=== PATIENT | male | born 1950 | race Caucasian/White ===

== ENCOUNTER 2023-08-19 15:43 | Inpatient (IN) | payer OTHER ==
--- OUTSIDE RECORDS SUMMARY | 2023-08-19 15:48 | XMS REPORT | Continuity of Care Document ---
Author Name Unknown Address [address] [facility] [address] [place] [address] [facility] Address [address] [place] [address] Care Team Providers Care Natural Sciences Manager Name Role Phone Stacy Silva Attending Clinician Unavailable Payers Payer Name Policy Type Policy Number Effective Date Expirati on Date Source AETNA MEDICARE 53 [id number] 2019 00:00:00 [facility] AETNA MEDICARE C1 [id number] [facility] Problems Condition Name Condition Details Condition Category Status Onset Date Resolution Date Last Treatment Date Treating Clinician Comments Source [id number] Erectile disorder due to medical condition in male Problem Active [facility] Low back pain Low back pain, unspecifie d Problem Active [facility] [id number] Stage 3b chronic kidney disease Problem Active [facility] [id number] Chronic, continuous use of opioids Problem [facility] [id number] Primary hypertensi on Problem [facility] [id number] Low back pain Problem Active [facility] [id number] PVD (periphera l vascular disease) Problem Active [facility] [id number] Other chronic pain Problem Active [facility] [id number] Primary insomnia Problem Active [facility] [id number] Screening for prostate cancer Problem Active [facility] [id number] Pure hyperchole sterolemia Problem Active [facility] [id number] Other secondary scoliosis, lumbar region Problem Active [facility] [id number] Cigarette nicotine dependence without complicati on Problem Active [facility] Allergies, Adverse Reactions, Alerts Allergy Name Allergy Type Status Severity Reaction(s) Onset Date Inactive Date Treating Clinician Comments Source Codeine Codeine Active stomach upset [facility] Social History Social Habit Start Date Stop Date Quantity Comments Source History of Tobacco Use Current Smoker [facility] Sex Assigned At [facility] Smoking Status Start Date Stop Date Source Current Smoker 2023-06-06 00:00:00 [facility] Medications Ordered Medication Name Filled Medication Name Start Date Stop Date Current Medication? Ordering Clinician Indication Dosage Frequency Signature (SIG) Comments Components Source Sildenafil Citrate 100 MG Sildenafil Citrate 100 MG 6-21 00:00: 00 12-16 00:00 :00 No 1{table t_as_ne eded} QD Sildenafil Citrate 100 MG Viagra 50 MG Viagra 50 MG 3-21 00:00: 00 10-15 00:00 :00 No 1{table t_as_ne eded} QD Viagra 50 MG Viagra 100 MG Viagra 100 MG 3-21 00:00: 00 09-06 00:00 :00 No 1{table t_as_ne eded} QD Viagra 100 MG Tadalafil (PAH) 20 MG Tadalafil (PAH) 20 MG 2-15 00:00: 00 08-12 00:00 :00 No 1{table t} Tadalafil (PAH) 20 MG Tramadol HCl Tramadol HCl 08 00:00: 00 02-07 00:00 :00 No Stacy Vineland 1 tablet as needed [facility] Aspirin 81 Aspirin 81 Yes Stacy Vineland 1 tablet [facility] Clopidogrel Bisulfate Clopidogrel Bisulfate Yes Stacy Vineland 1 tablet [facility] Atorvastati n Calcium Atorvastati n Calcium Yes Stacy Vineland 1 tablet [facility] Melatonin 5 MG Melatonin 5 MG No QD Losartan Potassium 25 MG Losartan Potassium 25 MG No 1{table t} QD Clopidogrel Bisulfate 75 MG Clopidogrel Bisulfate 75 MG No 1{table t} QD Aspirin 81 81 MG Aspirin 81 81 MG No 1{table t} QD Gabapentin 100 MG Gabapentin 100 MG No 1{capsu le} QD Atorvastati n Calcium 10 MG Atorvastati n Calcium 10 MG No 1{table t} QD Clopidogrel Bisulfate 75 MG Clopidogrel Bisulfate 75 MG No Clopidogre l Bisulfate 75 MG Hemp Oil-Vanilly l Butyl Ether 3-1 % Hemp Oil-Vanilly l Butyl Ether 3-1 % No Hemp Oil-Vanill yl Butyl Ether 3-1 % Atorvastati n Calcium 10 MG Atorvastati n Calcium 10 MG No 1{table t} QD Atorvastat in Calcium 10 MG [place] Garlic Ear Drops - [place] Garlic Ear Drops - No [place] Garlic Ear Drops - Melatonin 5 MG Melatonin 5 MG No QD Melatonin 5 MG Losartan Potassium 25 MG Losartan Potassium 25 MG No 1{table t} QD Losartan Potassium 25 MG Aspirin 81 81 MG Aspirin 81 81 MG No 1{table t} QD Aspirin 81 81 MG Tadalafil 10 MG Tadalafil 10 MG No 1{table t_as_ne eded} QD Tadalafil 10 MG Melatonin 5 MG Melatonin 5 MG No QD Melatonin 5 MG Clopidogrel Bisulfate 75 MG Clopidogrel Bisulfate 75 MG No Clopidogre l Bisulfate 75 MG Hemp Oil-Vanilly l Butyl Ether 3-1 % Hemp Oil-Vanilly l Butyl Ether 3-1 % No Hemp Oil-Vanill yl Butyl Ether 3-1 % Atorvastati n Calcium 10 MG Atorvastati n Calcium 10 MG No 1{table t} QD Atorvastat in Calcium 10 MG [place] Garlic Ear Drops - [place] Garlic Ear Drops - No [place] Garlic Ear Drops - Melatonin 5 MG Melatonin 5 MG No QD Melatonin 5 MG Losartan Potassium 25 MG Losartan Potassium 25 MG No 1{table t} QD Losartan Potassium 25 MG Aspirin 81 81 MG Aspirin 81 81 MG No 1{table t} QD Aspirin 81 81 MG Full Spectrum Soft Gels 15 MG Full Spectrum Soft Gels 15 MG No QD Full Spectrum Soft Gels 15 MG Full Spectrum Soft Gels 15 MG Full Spectrum Soft Gels 15 MG No QD Full Spectrum Soft Gels 15 MG HYDROcodone -Acetaminop hen 5-325 MG HYDROcodone -Acetaminop hen 5-325 MG No HYDROcodon e-Acetamin ophen 5-325 MG Melatonin 5 MG Melatonin 5 MG No QD Melatonin 5 MG Clopidogrel Bisulfate 75 MG Clopidogrel Bisulfate 75 MG No Clopidogre l Bisulfate 75 MG Atorvastati n Calcium 10 MG Atorvastati n Calcium 10 MG No 1{table t} QD Atorvastat in Calcium 10 MG Aspirin 81 81 MG Aspirin 81 81 MG No 1{table t} QD Aspirin 81 81 MG Losartan Potassium 25 MG Losartan Potassium 25 MG No 1{table t} QD Losartan Potassium 25 MG Sildenafil Citrate 100 MG Sildenafil Citrate 100 MG No Sildenafil Citrate 100 MG Atorvastati n Calcium 10 MG Atorvastati n Calcium 10 MG No 1{table t} QD Atorvastat in Calcium 10 MG Clopidogrel Bisulfate 75 MG Clopidogrel Bisulfate 75 MG No Clopidogre l Bisulfate 75 MG Melatonin 5 MG Melatonin 5 MG No QD Melatonin 5 MG Full Spectrum Soft Gels 15 MG Full Spectrum Soft Gels 15 MG No QD Full Spectrum Soft Gels 15 MG Sildenafil Citrate 100 MG Sildenafil Citrate 100 MG No Sildenafil Citrate 100 MG Aspirin 81 81 MG Aspirin 81 81 MG No 1{table t} QD Aspirin 81 81 MG HYDROcodone -Acetaminop hen 5-325 MG HYDROcodone -Acetaminop hen 5-325 MG No HYDROcodon e-Acetamin ophen 5-325 MG Losartan Potassium 25 MG Losartan Potassium 25 MG No 1{table t} BID Losartan Potassium 25 MG Atorvastati n Calcium 10 MG Atorvastati n Calcium 10 MG No 1{table t} QD Atorvastat in Calcium 10 MG Clopidogrel Bisulfate 75 MG Clopidogrel Bisulfate 75 MG No Clopidogre l Bisulfate 75 MG Melatonin 5 MG Melatonin 5 MG No QD Melatonin 5 MG Full Spectrum Soft Gels 15 MG Full Spectrum Soft Gels 15 MG No QD Full Spectrum Soft Gels 15 MG Sildenafil Citrate 100 MG Sildenafil Citrate 100 MG No Sildenafil Citrate 100 MG Aspirin 81 81 MG Aspirin 81 81 MG No 1{table t} QD Aspirin 81 81 MG HYDROcodone -Acetaminop hen 5-325 MG HYDROcodone -Acetaminop hen 5-325 MG No HYDROcodon e-Acetamin ophen 5-325 MG Losartan Potassium 25 MG Losartan Potassium 25 MG No 1{table t} BID Losartan Potassium 25 MG Atorvastati n Calcium 10 MG Atorvastati n Calcium 10 MG No 1{table t} QD Atorvastat in Calcium 10 MG Clopidogrel Bisulfate 75 MG Clopidogrel Bisulfate 75 MG No Clopidogre l Bisulfate 75 MG Melatonin 5 MG Melatonin 5 MG No QD Melatonin 5 MG Full Spectrum Soft Gels 15 MG Full Spectrum Soft Gels 15 MG No QD Full Spectrum Soft Gels 15 MG Sildenafil Citrate 100 MG Sildenafil Citrate 100 MG No Sildenafil Citrate 100 MG Aspirin 81 81 MG Aspirin 81 81 MG No 1{table t} QD Aspirin 81 81 MG HYDROcodone -Acetaminop hen 5-325 MG HYDROcodone -Acetaminop hen 5-325 MG No HYDROcodon e-Acetamin ophen 5-325 MG Losartan Potassium 25 MG Losartan Potassium 25 MG No 1{table t} BID Losartan Potassium 25 MG Atorvastati n Calcium 10 MG Atorvastati n Calcium 10 MG No 1{table t} QD Atorvastat in Calcium 10 MG Clopidogrel Bisulfate 75 MG Clopidogrel Bisulfate 75 MG No Clopidogre l Bisulfate 75 MG Melatonin 5 MG Melatonin 5 MG No QD Melatonin 5 MG Full Spectrum Soft Gels 15 MG Full Spectrum Soft Gels 15 MG No QD Full Spectrum Soft Gels 15 MG Sildenafil Citrate 100 MG Sildenafil Citrate 100 MG No Sildenafil Citrate 100 MG Aspirin 81 81 MG Aspirin 81 81 MG No 1{table t} QD Aspirin 81 81 MG HYDROcodone -Acetaminop hen 5-325 MG HYDROcodone -Acetaminop hen 5-325 MG No HYDROcodon e-Acetamin ophen 5-325 MG Losartan Potassium 25 MG Losartan Potassium 25 MG No 1{table t} BID Losartan Potassium 25 MG Atorvastati n Calcium 10 MG Atorvastati n Calcium 10 MG No 1{table t} QD Atorvastat in Calcium 10 MG Clopidogrel Bisulfate 75 MG Clopidogrel Bisulfate 75 MG No Clopidogre l Bisulfate 75 MG Melatonin 5 MG Melatonin 5 MG No QD Melatonin 5 MG Full Spectrum Soft Gels 15 MG Full Spectrum Soft Gels 15 MG No QD Full Spectrum Soft Gels 15 MG Sildenafil Citrate 100 MG Sildenafil Citrate 100 MG No Sildenafil Citrate 100 MG Aspirin 81 81 MG Aspirin 81 81 MG No 1{table t} QD Aspirin 81 81 MG HYDROcodone -Acetaminop hen 5-325 MG HYDROcodone -Acetaminop hen 5-325 MG No HYDROcodon e-Acetamin ophen 5-325 MG Losartan Potassium 25 MG Losartan Potassium 25 MG No 1{table t} BID Losartan Potassium 25 MG Atorvastati n Calcium 10 MG Atorvastati n Calcium 10 MG No 1{table t} QD Atorvastat in Calcium 10 MG Sildenafil Citrate 100 MG Sildenafil Citrate 100 MG No Sildenafil Citrate 100 MG Clopidogrel Bisulfate 75 MG Clopidogrel Bisulfate 75 MG No Clopidogre l Bisulfate 75 MG Full Spectrum Soft Gels 15 MG Full Spectrum Soft Gels 15 MG No QD Full Spectrum Soft Gels 15 MG HYDROcodone -Acetaminop hen 5-325 MG HYDROcodone -Acetaminop hen 5-325 MG No HYDROcodon e-Acetamin ophen 5-325 MG Aspirin 81 81 MG Aspirin 81 81 MG No 1{table t} QD Aspirin 81 81 MG Melatonin 5 MG Melatonin 5 MG No QD Melatonin 5 MG Losartan Potassium 25 MG Losartan Potassium 25 MG No 1{table t} BID Losartan Potassium 25 MG Atorvastati n Calcium 10 MG Atorvastati n Calcium 10 MG No 1{table t} QD Atorvastat in Calcium 10 MG Clopidogrel Bisulfate 75 MG Clopidogrel Bisulfate 75 MG No Clopidogre l Bisulfate 75 MG Melatonin 5 MG Melatonin 5 MG No QD Melatonin 5 MG HYDROcodone -Acetaminop hen 5-325 MG HYDROcodone -Acetaminop hen 5-325 MG No HYDROcodon e-Acetamin ophen 5-325 MG Losartan Potassium 25 MG Losartan Potassium 25 MG No 1{table t} BID Losartan Potassium 25 MG Aspirin 81 81 MG Aspirin 81 81 MG No 1{table t} QD Aspirin 81 81 MG Full Spectrum Soft Gels 15 MG Full Spectrum Soft Gels 15 MG No QD Full Spectrum Soft Gels 15 MG Sildenafil Citrate 100 MG Sildenafil Citrate 100 MG No Sildenafil Citrate 100 MG Tylenol Arthritis Pain Tylenol Arthritis Pain No Tylenol Arthritis Pain Immunizations Ordered Immunization Name Filled Immunization Name Date Status Comments Source Pneumovax (PPSV23) Pneumovax (PPSV23) 2021-04-26 14:02:00 Completed [facility] Pneumovax (PPSV23) Pneumovax (PPSV23) 2021-04-26 14:02:00 Completed [facility] Pneumovax (PPSV23) Pneumovax (PPSV23) 2021-04-26 14:02:00 Completed [facility] Pneumovax (PPSV23) Pneumovax (PPSV23) 2021-04-26 14:02:00 Completed [facility] Pneumovax (PPSV23) Pneumovax (PPSV23) 2021-04-26 14:02:00 Completed [facility] Pneumovax (PPSV23) Pneumovax (PPSV23) 2021-04-26 14:02:00 Completed [facility] Pneumovax (PPSV23) Pneumovax (PPSV23) 2021-04-26 14:02:00 Completed [facility] Pneumovax (PPSV23) Pneumovax (PPSV23) 2021-04-26 14:02:00 Completed [facility] Pneumovax (PPSV23) Pneumovax (PPSV23) 2021-04-26 14:02:00 Completed [facility] Pneumovax (PPSV23) Pneumovax (PPSV23) 2021-04-26 14:02:00 Completed [facility] Pneumovax (PPSV23) Pneumovax (PPSV23) 2021-04-26 14:02:00 Completed [facility] Pneumovax (PPSV23) Pneumovax (PPSV23) 2021-04-26 14:02:00 Completed [facility] Pneumovax (PPSV23) Pneumovax (PPSV23) 2021-04-26 14:02:00 Completed [facility] Moderna COVID-19 Vaccine Moderna COVID-19 Vaccine 2020-05-16 11:41:00 Completed [facility] Moderna COVID-19 Vaccine Moderna COVID-19 Vaccine 2020-05-16 11:41:00 Completed [facility] Moderna COVID-19 Vaccine Moderna COVID-19 Vaccine 2020-05-16 11:41:00 Completed [facility] Moderna COVID-19 Vaccine Moderna COVID-19 Vaccine 2020-05-16 11:41:00 Completed [facility] Moderna COVID-19 Vaccine Moderna COVID-19 Vaccine 2020-05-16 11:41:00 Completed [facility] Moderna COVID-19 Vaccine Moderna COVID-19 Vaccine 2020-05-16 11:41:00 Completed [facility] Moderna COVID-19 Vaccine Moderna COVID-19 Vaccine 2020-05-16 11:41:00 Completed [facility] Moderna COVID-19 Vaccine Moderna COVID-19 Vaccine 2020-05-16 11:41:00 Completed [facility] Moderna COVID-19 Vaccine Moderna COVID-19 Vaccine 2020-05-16 11:41:00 Completed [facility] Moderna COVID-19 Vaccine Moderna COVID-19 Vaccine 2020-05-16 11:41:00 Completed [facility] Moderna COVID-19 Vaccine Moderna COVID-19 Vaccine 2020-05-16 11:41:00 Completed [facility] Moderna COVID-19 Vaccine Moderna COVID-19 Vaccine 2020-05-16 11:41:00 Completed [facility] Moderna COVID-19 Vaccine Moderna COVID-19 Vaccine 2020-05-16 11:41:00 Completed [facility] Moderna COVID-19 Vaccine Moderna COVID-19 Vaccine 2020-05-16 11:41:00 Completed [facility] FLUZONE HIGH DOSE OVER 65 FLUZONE HIGH DOSE OVER 65 2020-02-10 10:43:00 Completed [facility] FLUZONE HIGH DOSE OVER 65 FLUZONE HIGH DOSE OVER 65 2020-02-10 10:43:00 Completed [facility] FLUZONE HIGH DOSE OVER 65 FLUZONE HIGH DOSE OVER 65 2020-02-10 10:43:00 Completed [facility] FLUZONE HIGH DOSE OVER 65 FLUZONE HIGH DOSE OVER 65 2020-02-10 10:43:00 Completed [facility] FLUZONE HIGH DOSE OVER 65 FLUZONE HIGH DOSE OVER 65 2020-02-10 10:43:00 Completed [facility] FLUZONE HIGH DOSE OVER 65 FLUZONE HIGH DOSE OVER 65 2020-02-10 10:43:00 Completed [facility] FLUZONE HIGH DOSE OVER 65 FLUZONE HIGH DOSE OVER 65 2020-02-10 10:43:00 Completed [facility] FLUZONE HIGH DOSE OVER 65 FLUZONE HIGH DOSE OVER 65 2020-02-10 10:43:00 Completed [facility] FLUZONE HIGH DOSE OVER 65 FLUZONE HIGH DOSE OVER 65 2020-02-10 10:43:00 Completed [facility] FLUZONE HIGH DOSE OVER 65 FLUZONE HIGH DOSE OVER 65 2020-02-10 10:43:00 Completed [facility] FLUZONE HIGH DOSE OVER 65 FLUZONE HIGH DOSE OVER 65 2020-02-10 10:43:00 Completed [facility] FLUZONE HIGH DOSE OVER 65 FLUZONE HIGH DOSE OVER 65 2020-02-10 10:43:00 Completed [facility] FLUZONE HIGH DOSE OVER 65 FLUZONE HIGH DOSE OVER 65 2020-02-10 10:43:00 Completed [facility] FLUZONE HIGH DOSE OVER 65 FLUZONE HIGH DOSE OVER 65 2020-02-10 10:43:00 Completed [facility] FLUZONE HIGH DOSE OVER 65 FLUZONE HIGH DOSE OVER 65 2019-04-02 08:07:00 Completed [facility] FLUZONE HIGH DOSE OVER 65 FLUZONE HIGH DOSE OVER 65 2019-04-02 08:07:00 Completed [facility] FLUZONE HIGH DOSE OVER 65 FLUZONE HIGH DOSE OVER 65 2019-04-02 08:07:00 Completed [facility] FLUZONE HIGH DOSE OVER 65 FLUZONE HIGH DOSE OVER 65 2019-04-02 08:07:00 Completed [facility] FLUZONE HIGH DOSE OVER 65 FLUZONE HIGH DOSE OVER 65 2019-04-02 08:07:00 Completed [facility] FLUZONE HIGH DOSE OVER 65 FLUZONE HIGH DOSE OVER 65 2019-04-02 08:07:00 Completed [facility] FLUZONE HIGH DOSE OVER 65 FLUZONE HIGH DOSE OVER 65 2019-04-02 08:07:00 Completed [facility] FLUZONE HIGH DOSE OVER 65 FLUZONE HIGH DOSE OVER 65 2019-04-02 08:07:00 Completed [facility] FLUZONE HIGH DOSE OVER 65 FLUZONE HIGH DOSE OVER 65 2019-04-02 08:07:00 Completed [facility] FLUZONE HIGH DOSE OVER 65 FLUZONE HIGH DOSE OVER 65 2019-04-02 08:07:00 Completed [facility] FLUZONE HIGH DOSE OVER 65 FLUZONE HIGH DOSE OVER 65 2019-04-02 08:07:00 Completed [facility] FLUZONE HIGH DOSE OVER 65 FLUZONE HIGH DOSE OVER 65 2019-04-02 08:07:00 Completed [facility] FLUZONE HIGH DOSE OVER 65 FLUZONE HIGH DOSE OVER 65 2019-04-02 08:07:00 Completed [facility] FLUZONE HIGH DOSE OVER 65 FLUZONE HIGH DOSE OVER 65 2019-04-02 08:07:00 Completed [facility] FLUZONE HIGH DOSE OVER 65 FLUZONE HIGH DOSE OVER 65 2019-04-02 00:00:00 Completed [facility] Prevnar 13 -Pneumonia Vaccine Prevnar 13 -Pneumonia Vaccine 2018-07-24 13:30:00 Completed [facility] Prevnar 13 -Pneumonia Vaccine Prevnar 13 -Pneumonia Vaccine 2018-07-24 13:30:00 Completed [facility] Prevnar 13 -Pneumonia Vaccine Prevnar 13 -Pneumonia Vaccine 2018-07-24 13:30:00 Completed [facility] Prevnar 13 -Pneumonia Vaccine Prevnar 13 -Pneumonia Vaccine 2018-07-24 13:30:00 Completed [facility] Prevnar 13 -Pneumonia Vaccine Prevnar 13 -Pneumonia Vaccine 2018-07-24 13:30:00 Completed [facility] Prevnar 13 -Pneumonia Vaccine Prevnar 13 -Pneumonia Vaccine 2018-07-24 13:30:00 Completed [facility] Prevnar 13 -Pneumonia Vaccine Prevnar 13 -Pneumonia Vaccine 2018-07-24 13:30:00 Completed [facility] Prevnar 13 -Pneumonia Vaccine Prevnar 13 -Pneumonia Vaccine 2018-07-24 13:30:00 Completed [facility] Prevnar 13 -Pneumonia Vaccine Prevnar 13 -Pneumonia Vaccine 2018-07-24 13:30:00 Completed [facility] Prevnar 13 -Pneumonia Vaccine Prevnar 13 -Pneumonia Vaccine 2018-07-24 13:30:00 Completed [facility] Prevnar 13 -Pneumonia Vaccine Prevnar 13 -Pneumonia Vaccine 2018-07-24 13:30:00 Completed [facility] Prevnar 13 -Pneumonia Vaccine Prevnar 13 -Pneumonia Vaccine 2018-07-24 13:30:00 Completed [facility] Prevnar 13 -Pneumonia Vaccine Prevnar 13 -Pneumonia Vaccine 2018-07-24 13:30:00 Completed [facility] Prevnar 13 -Pneumonia Vaccine Prevnar 13 -Pneumonia Vaccine 2018-07-24 13:30:00 Completed [facility] Prevnar 13 -Pneumonia Vaccine Prevnar 13 -Pneumonia Vaccine 2018-07-24 00:00:00 Completed [facility] Flucelvax - single dose syringe Flucelvax - single dose syringe 2018-01-31 09:29:00 Completed [facility] Flucelvax - single dose syringe Flucelvax - single dose syringe 2018-01-31 09:29:00 Completed [facility] Flucelvax - single dose syringe Flucelvax - single dose syringe 2018-01-31 09:29:00 Completed [facility] Flucelvax - single dose syringe Flucelvax - single dose syringe 2018-01-31 09:29:00 Completed [facility] Flucelvax - single dose syringe Flucelvax - single dose syringe 2018-01-31 09:29:00 Completed [facility] Flucelvax - single dose syringe Flucelvax - single dose syringe 2018-01-31 09:29:00 Completed [facility] Flucelvax - single dose syringe Flucelvax - single dose syringe 2018-01-31 09:29:00 Completed [facility] Flucelvax - single dose syringe Flucelvax - single dose syringe 2018-01-31 09:29:00 Completed [facility] Flucelvax - single dose syringe Flucelvax - single dose syringe 2018-01-31 09:29:00 Completed [facility] Flucelvax - single dose syringe Flucelvax - single dose syringe 2018-01-31 09:29:00 Completed [facility] Flucelvax - single dose syringe Flucelvax - single dose syringe 2018-01-31 09:29:00 Completed [facility] Flucelvax - single dose syringe Flucelvax - single dose syringe 2018-01-31 09:29:00 Completed [facility] Flucelvax - single dose syringe Flucelvax - single dose syringe 2018-01-31 09:29:00 Completed [facility] Flucelvax - single dose syringe Flucelvax - single dose syringe 2018-01-31 09:29:00 Completed [facility] Flucelvax Flucelvax 2018-01-31 00:00:00 Completed [facility] Moderna COVID-19 Vaccine Moderna COVID-19 Vaccine Unknown Completed [facility] Flucelvax - single dose syringe Flucelvax - single dose syringe Unknown Completed [facility] Pneumovax (PPSV23) Pneumovax (PPSV23) Unknown Completed [facility] Prevnar 13 -Pneumonia Vaccine Prevnar 13 -Pneumonia Vaccine Unknown Completed [facility] FLUZONE HIGH DOSE OVER 65 FLUZONE HIGH DOSE OVER 65 Unknown Completed [facility] FLUZONE HIGH DOSE OVER 65 FLUZONE HIGH DOSE OVER 65 Unknown Completed [facility] Moderna COVID-19 Vaccine Moderna COVID-19 Vaccine Unknown Completed [facility] Flucelvax - single dose syringe Flucelvax - single dose syringe Unknown Completed [facility] Pneumovax (PPSV23) Pneumovax (PPSV23) Unknown Completed [facility] Prevnar 13 -Pneumonia Vaccine Prevnar 13 -Pneumonia Vaccine Unknown Completed [facility] FLUZONE HIGH DOSE OVER 65 FLUZONE HIGH DOSE OVER 65 Unknown Completed [facility] FLUZONE HIGH DOSE OVER 65 FLUZONE HIGH DOSE OVER 65 Unknown Completed [facility] Moderna COVID-19 Vaccine Moderna COVID-19 Vaccine Unknown Completed [facility] Flucelvax - single dose syringe Flucelvax - single dose syringe Unknown Completed [facility] Pneumovax (PPSV23) Pneumovax (PPSV23) Unknown Completed [facility] Prevnar 13 -Pneumonia Vaccine Prevnar 13 -Pneumonia Vaccine Unknown Completed [facility] FLUZONE HIGH DOSE OVER 65 FLUZONE HIGH DOSE OVER 65 Unknown Completed [facility] FLUZONE HIGH DOSE OVER 65 FLUZONE HIGH DOSE OVER 65 Unknown Completed [facility] Moderna COVID-19 Vaccine Moderna COVID-19 Vaccine Unknown Completed [facility] Flucelvax - single dose syringe Flucelvax - single dose syringe Unknown Completed [facility] Pneumovax (PPSV23) Pneumovax (PPSV23) Unknown Completed [facility] Prevnar 13 -Pneumonia Vaccine Prevnar 13 -Pneumonia Vaccine Unknown Completed [facility] FLUZONE HIGH DOSE OVER 65 FLUZONE HIGH DOSE OVER 65 Unknown Completed [facility] FLUZONE HIGH DOSE OVER 65 FLUZONE HIGH DOSE OVER 65 Unknown Completed [facility] Moderna COVID-19 Vaccine Moderna COVID-19 Vaccine Unknown Completed [facility] Flucelvax - single dose syringe Flucelvax - single dose syringe Unknown Completed [facility] Pneumovax (PPSV23) Pneumovax (PPSV23) Unknown Completed [facility] Prevnar 13 -Pneumonia Vaccine Prevnar 13 -Pneumonia Vaccine Unknown Completed [facility] FLUZONE HIGH DOSE OVER 65 FLUZONE HIGH DOSE OVER 65 Unknown Completed [facility] FLUZONE HIGH DOSE OVER 65 FLUZONE HIGH DOSE OVER 65 Unknown Completed [facility] Moderna COVID-19 Vaccine Moderna COVID-19 Vaccine Unknown Completed [facility] Flucelvax - single dose syringe Flucelvax - single dose syringe Unknown Completed [facility] Pneumovax (PPSV23) Pneumovax (PPSV23) Unknown Completed [facility] Prevnar 13 -Pneumonia Vaccine Prevnar 13 -Pneumonia Vaccine Unknown Completed [facility] FLUZONE HIGH DOSE OVER 65 FLUZONE HIGH DOSE OVER 65 Unknown Completed [facility] FLUZONE HIGH DOSE OVER 65 FLUZONE HIGH DOSE OVER 65 Unknown Completed [facility] Moderna COVID-19 Vaccine Moderna COVID-19 Vaccine Unknown Completed [facility] Flucelvax (ccIIV4) - SDS - 0.5mL Flucelvax (ccIIV4) - SDS - 0.5mL Unknown Completed [facility] Pneumovax (PPSV23) Pneumovax (PPSV23) Unknown Completed [facility] Prevnar 13 -Pneumonia Vaccine Prevnar 13 -Pneumonia Vaccine Unknown Completed [facility] FLUZONE HIGH DOSE OVER 65 FLUZONE HIGH DOSE OVER 65 Unknown Completed [facility] FLUZONE HIGH DOSE OVER 65 FLUZONE HIGH DOSE OVER 65 Unknown Completed [facility] Prevnar 20 (PCV20) Prevnar 20 (PCV20) Unknown Completed [facility] Fluad (aIIV4) - SDS - 0.5mL Fluad (aIIV4) - SDS - 0.5mL Unknown Completed [facility] Moderna COVID-19 Vaccine Moderna COVID-19 Vaccine Unknown Completed [facility] Flucelvax (ccIIV4) - SDS - 0.5mL Flucelvax (ccIIV4) - SDS - 0.5mL Unknown Completed [facility] Pneumovax (PPSV23) Pneumovax (PPSV23) Unknown Completed [facility] Prevnar 13 -Pneumonia Vaccine Prevnar 13 -Pneumonia Vaccine Unknown Completed [facility] FLUZONE HIGH DOSE OVER 65 FLUZONE HIGH DOSE OVER 65 Unknown Completed [facility] FLUZONE HIGH DOSE OVER 65 FLUZONE HIGH DOSE OVER 65 Unknown Completed [facility] Vital Signs Vital Name Observation Time Observation Value Comments S pebbles height 2023-06-06 10:00:00 68.5 [in_i] Comm on [facility] weight 2023-06-06 10:00:00 141.4 [lb_av] Co [facility] temperature 2023-06-06 10:00:00 97.8 [degF] Com [facility] bmi 2023-06-06 10:00:00 21.18 kg/m2 Comm on [facility] oximetry 2023-06-06 10:00:00 98 % Commo n [facility] respiratory rate 2023-06-06 10:00:00 16 /min [facility] blood pressure systolic 2023-06-06 10:00:00 139 mm[Hg] [facility] blood pressure diastolic 2023-06-06 10:00:00 65 mm[Hg] [facility] height 2023-03-05 10:40:00 68.5 [in_i] Comm on [facility] weight 2023-03-05 10:40:00 144.0 [lb_av] Co [facility] temperature 2023-03-05 10:40:00 97.0 [degF] Com [facility] bmi 2023-03-05 10:40:00 21.57 kg/m2 Comm on [facility] oximetry 2023-03-05 10:40:00 99 % Commo n [facility] respiratory rate 2023-03-05 10:40:00 16 /min Common [facility] blood pressure systolic 2023-03-05 10:40:00 138 mm[Hg] Common [facility] blood pressure diastolic 2023-03-05 10:40:00 78 mm[Hg] [facility] height 2022-09-21 10:40:00 68.5 [in_i] Comm on [facility] weight 2022-09-21 10:40:00 147.2 [lb_av] Co mmon [facility] temperature 2022-09-21 10:40:00 97.2 [degF] Com [facility] bmi 2022-09-21 10:40:00 22.05 kg/m2 Comm on [facility] oximetry 2022-09-21 10:40:00 98 % Commo n [facility] respiratory rate 2022-09-21 10:40:00 16 /min Common [facility] blood pressure systolic 2022-09-21 10:40:00 119 mm[Hg] Common [facility] blood pressure diastolic 2022-09-21 10:40:00 66 mm[Hg] Common [facility] height 2022-09-21 10:40:00 68.5 [in_i] Comm on [facility] weight 2022-09-21 10:40:00 147.2 [lb_av] Co mmon [facility] temperature 2022-09-21 10:40:00 97.2 [degF] Com [facility] bmi 2022-09-21 10:40:00 22.05 kg/m2 Comm on [facility] oximetry 2022-09-21 10:40:00 98 % Commo n [facility] blood pressure systolic 2022-09-21 10:40:00 119 mm[Hg] Common [facility] blood pressure diastolic 2022-09-21 10:40:00 66 mm[Hg] [facility] height 2021-11-30 10:00:00 68.5 [in_i] Comm on [facility] weight 2021-11-30 10:00:00 148.4 [lb_av] Co mmon [facility] temperature 2021-11-30 10:00:00 98.4 [degF] Com mon [facility] bmi 2021-11-30 10:00:00 22.23 kg/m2 Comm on [facility] oximetry 2021-11-30 10:00:00 98 % Commo n [facility] respiratory rate 2021-11-30 10:00:00 16 /min [facility] blood pressure systolic 2021-11-30 10:00:00 136 mm[Hg] [facility] blood pressure diastolic 2021-11-30 10:00:00 80 mm[Hg] [facility] height 2021-11-30 10:00:00 68.5 [in_i] Comm on [facility] weight 2021-11-30 10:00:00 148.4 [lb_av] Co mmon [facility] temperature 2021-11-30 10:00:00 98.4 [degF] Com mon [facility] bmi 2021-11-30 10:00:00 22.23 kg/m2 Comm on [facility] oximetry 2021-11-30 10:00:00 98 % Commo n [facility] respiratory rate 2021-11-30 10:00:00 16 /min [facility] blood pressure systolic 2021-11-30 10:00:00 136 mm[Hg] [facility] blood pressure diastolic 2021-11-30 10:00:00 80 mm[Hg] Common [facility] height 2021-06-13 11:40:00 68.5 [in_i] Comm on [facility] weight 2021-06-13 11:40:00 156 [lb_av] Comm on [facility] temperature 2021-06-13 11:40:00 97.8 [degF] Com mon [facility] bmi 2021-06-13 11:40:00 23.37 kg/m2 Comm on [facility] oximetry 2021-06-13 11:40:00 98 % Commo n [facility] respiratory rate 2021-06-13 11:40:00 18 /min Common [facility] blood pressure systolic 2021-06-13 11:40:00 119 mm[Hg] Common [facility] blood pressure diastolic 2021-06-13 11:40:00 66 mm[Hg] Common [facility] height 2021-05-19 08:40:00 68.5 [in_i] Comm on [facility] weight 2021-05-19 08:40:00 158 [lb_av] Comm on [facility] temperature 2021-05-19 08:40:00 98.4 [degF] Com mon [facility] bmi 2021-05-19 08:40:00 23.67 kg/m2 Comm on [facility] oximetry 2021-05-19 08:40:00 99 % Commo n [facility] respiratory rate 2021-05-19 08:40:00 18 /min Common [facility] blood pressure systolic 2021-05-19 08:40:00 135 mm[Hg] [facility] blood pressure diastolic 2021-05-19 08:40:00 74 mm[Hg] Common [facility] height 2021-04-26 13:00:00 68.5 [in_i] Comm on [facility] weight 2021-04-26 13:00:00 158 [lb_av] Comm on [facility] temperature 2021-04-26 13:00:00 98.1 [degF] Com mon [facility] bmi 2021-04-26 13:00:00 23.67 kg/m2 Comm on [facility] oximetry 2021-04-26 13:00:00 98 % Commo n [facility] respiratory rate 2021-04-26 13:00:00 20 /min Common [facility] blood pressure systolic 2021-04-26 13:00:00 115 mm[Hg] Common [facility] blood pressure diastolic 2021-04-26 13:00:00 61 mm[Hg] [facility] height 2021-02-16 15:00:00 68.5 [in_i] Comm on [facility] weight 2021-02-16 15:00:00 156.6 [lb_av] Co mmon [facility] temperature 2021-02-16 15:00:00 98.9 [degF] Com mon [facility] bmi 2021-02-16 15:00:00 23.46 kg/m2 Comm on [facility] oximetry 2021-02-16 15:00:00 96 % Commo n [facility] respiratory rate 2021-02-16 15:00:00 18 /min [facility] blood pressure systolic 2021-02-16 15:00:00 139 mm[Hg] [facility] blood pressure diastolic 2021-02-16 15:00:00 63 mm[Hg] [facility] Encounters Start Date/Time End Date/Time Encounter Type Admission Type Attending Clinicians Care Facility Care Department Encounter ID Source 2022-05-31 09:01:00 Outpatient [place] Stacy [facility] [id number] [facility] 2022-03-19 16:16:00 Outpatient Stacy Silva [facility] [id number] [facility] 2021-11-28 11:07:00 Outpatient Stacy Silav [facility] [id number] [facility] 2021-05-29 15:18:01 Outpatient Stacy Silva [facility] [id number] [facility] 2021-05-24 12:20:15 Outpatient Stacy Silva [facility] [id number] [facility] 2021-05-24 12:03:03 Outpatient Stacy Silva [facility] [id number] [facility] 2021-05-24 11:54:00 Outpatient Stacy Silva [facility] [id number] [facility] 2021-05-24 11:17:39 Outpatient Stacy Silva [facility]EL[facility] [id number] [facility] 2021-05-24 11:11:33 Outpatient Stacy Silva [facility] [id number] [facility] 2023-06-06 00:00:00 2023-06-06 00:00:00 OFFICE VISIT ESTAB PT LEVEL 3 [facility] [id number] [facility] 2023-03-05 00:00:00 2023-03-05 00:00:00 OFFICE VISIT ESTAB PT LEVEL 3 [facility] [id number] [facility] 2022-09-21 00:00:00 2022-09-21 00:00:00 OFFICE VISIT ESTAB PT LEVEL 3 [facility] [id number] [facility] 2022-09-21 00:00:00 2022-09-21 00:00:00 SUB ANNUAL [facility] V[facility] [id number] [facility] 2022-09-05 00:00:00 2022-09-05 00:00:00 (TEL) STLMLC ST[facility] [id number] [facility] 2022-08-14 00:00:00 2022-08-14 00:00:00 (TEL) STLMLC ST[facility] [id number] [facility] 2022-08-08 00:00:00 2022-08-08 00:00:00 (TEL) STLMLC STL[facility]C [id number] [facility] 2021-12-15 00:00:00 2021-12-15 00:00:00 (TEL) STLMLC ST[facility] [id number] [facility] 2021-11-30 00:00:00 2021-11-30 00:00:00 OFFICE VISIT ESTAB PT LEVEL 4 [facility]C ST[facility]C [id number] [facility] 2021-11-23 00:00:00 2021-11-23 00:00:00 (TEL) STLMLC STL[facility]C [id number] [facility] 2021-10-16 00:00:00 2021-10-16 00:00:00 (TEL) STLMLC STL[facility]C [id number] [facility] 2021-08-02 00:00:00 2021-08-02 00:00:00 (TEL) STLMLC STL[facility]C [id number] [facility] 2021-07-18 00:00:00 2021-07-18 00:00:00 (TEL) STLMLC STL[facility]C [id number] [facility] 2021-07-18 00:00:00 2021-07-18 00:00:00 (TEL) STLMLC STL[facility]C [id number] [facility] 2021-07-17 00:00:00 2021-07-17 00:00:00 (TEL) STLMLC STLMLC [id number] [facility] 2021-06-16 00:00:00 2021-06-16 00:00:00 (TEL) STLMLC STL[facility]C [id number] [facility] 2021-06-16 00:00:00 2021-06-16 00:00:00 (TEL) STLMLC ST[facility]C [id number] [facility] 2021-06-13 00:00:00 2021-06-13 00:00:00 OFFICE VISIT EST PT LEVEL 3 [facility]LMLC STL[facility]C [id number] [facility] 2021-05-19 00:00:00 2021-05-19 00:00:00 OFFICE VISIT EST PT LEVEL 3 [facility] [id number] [facility] 2021-04-26 00:00:00 2021-04-26 00:00:00 SUB ANNUAL [facility]NESS VISIT STLMLC STL[facility]C [id number] [facility] 2021-02-16 00:00:00 2021-02-16 00:00:00 OFFICE VISIT EST PT LEVEL 3 [facility]C ST[facility] [id number] [facility] 2020-11-17 00:00:00 2020-11-17 00:00:00 Outpatient [facility] [id number] [facility] 2020-11-10 00:00:00 2020-11-10 00:00:00 Outpatient [facility] [id number] [facility] 2020-09-30 00:00:00 2020-09-30 00:00:00 Outpatient [facility] [id number] [facility] 2020-08-24 00:00:00 2020-08-24 00:00:00 Outpatient [facility] [id number] [facility] 2020-08-15 00:00:00 2020-08-15 00:00:00 Outpatient [facility] [id number] [facility] 2020-05-16 00:00:00 2020-05-16 00:00:00 Outpatient [facility] [id number] [facility] 2020-02-10 00:00:00 2020-02-10 00:00:00 Outpatient [facility] [id number] [facility] 2019-11-10 08:20:00 2019-11-10 08:20:[address] [facility] [id number] [facility] 2019-08-11 08:40:00 2019-08-11 08:40:[address] [facility] [id number] [facility] 2019-07-02 09:40:00 2019-07-02 09:40:[address] [facility] [id number] [facility] 2019-05-12 10:18:00 2019-05-12 10:18:[address] [facility] [id number] [facility] 2019-04-02 08:00:00 2019-04-02 08:00:[address] [facility] [id number] [facility] 2019-02-05 18:37:00 2019-02-05 18:37:[address] [facility] [id number] [facility] 2019-01-30 08:40:00 2019-01-30 08:40:[address] [facility] [id number] [facility] 2018-10-31 09:40:00 2018-10-31 09:40:[address] [facility] [id number] [facility] 2018-10-23 09:12:00 2018-10-23 09:12:[address] [facility] [id number] [facility] 2018-07-24 13:00:00 2018-07-24 13:00:[address] [facility] [id number] [facility] 2018-07-22 11:45:00 2018-07-22 11:45:[address] [facility] [id number] [facility] 2018-05-02 08:30:00 2018-05-02 08:30:00 Outpatient [facility] [id number] [facility] 2018-01-31 09:00:00 2018-01-31 09:00:00 Outpatient [facility] [id number] [facility] 2017-11-01 09:30:00 2017-11-01 09:30:00 Outpatient [facility] [id number] [facility] 2017-08-20 16:22:00 2017-08-20 16:22:00 Outpatient [facility] [id number] [facility] 2017-07-15 15:00:00 2017-07-15 15:00:00 Outpatient [facility] [id number] [facility] Results Test Description Test Time Test Comments Results Result Co mments Source LIPID [id number] 00:00:00* Test Item Value Reference Range Interpretation Comme nts CHOLESTEROL (test code = 2093-3) 97 MG/DL See_Comment [Automated messa ge] The system which generated this result transmitted reference range: <200 MG/DL. The reference range was not used to interpret this result as normal/abnormal. TRIGLYCERIDES (test code = 2571-8) 85 MG/DL See_Comment [Automated messa ge] The system which generated this result transmitted reference range: <150 MG/DL. The reference range was not used to interpret this result as normal/abnormal. HDL CHOLESTEROL (test code = 2085-9) 36 MG/DL See_Comment L [Automated messa ge] The system which generated this result transmitted reference range: >39 MG/DL. The reference range was not used to interpret this result as normal/abnormal. CALC LDL CHOL (test code = 23311-4) 44 MG/DL See_Comment [Automated messa ge] The system which generated this result transmitted reference range: <100 MG/DL. The reference range was not used to interpret this result as normal/abnormal. RISK RATIO LDL/HDL (test code = 39909-4) 1.22 RATIO See_Comment [Automated message] The system which generated this result transmitted reference range: <3.55 RATIO. The reference range was not used to interpret this result as normal/abnormal. PSA, FREE AND [id number] 00:00:00* Test Item Value Reference Range Interpretation Comme nts PROSTATIC SPECIFIC AG (test code = 2857-1) 1.86 NG/ML See_Comment [Automated message] The system which generated this result transmitted reference range: <=4.00 NG/ML. The reference range was not used to interpret this result as normal/abnormal. FREE PSA (test code = 85812-1) 0.62 NG/ML % FREE PSA (test code = 51412-4) 33 % SEE BELOW % COMPREHENSIVE METABOLIC [id number] 00:00:00* Test Item Value Reference Range Interpretation Comme nts GLUCOSE (test code = 1558-6) 99 MG/DL See_Comment [Automated [employer]] The system which generated this result transmitted reference range: 70-99 MG/DL. The reference range was not used to interpret this result as normal/abnormal. BUN (test code = 3094-0) 14 MG/DL See_Comment [Automated [employer]] The system which generated this result transmitted reference range: 8-23 MG/DL. The reference range was not used to interpret this result as normal/abnormal. CREATININE (test code = 2160-0) 1.70 MG/DL See_Comment H [Automated [employer]] The system which generated this result transmitted reference range: 0.80-1.40 MG/DL. The reference range was not used to interpret this result as normal/abnormal. eGFR (2020 CKD-EPI) (test code = 69663-0) 42 ML/MIN/1.73 See_Comment L [Automated messa ge] The system which generated this result transmitted reference range: >60 ML/MIN/1.73. The reference range was not used to interpret this result as normal/abnormal. CALC BUN/CREAT (test code = 3097-3) 8 RATIO See_Comment [Automated [employer] ge] The system which generated this result transmitted reference range: 6-28 RATIO. The reference range was not used to interpret this result as normal/abnormal. SODIUM (test code = 2951-2) 143 MEQ/L See_Comment [Automated messa ge] The system which generated this result transmitted reference range: 133-146 MEQ/L. The reference range was not used to interpret this result as normal/abnormal. POTASSIUM (test code = 2823-3) 4.5 MEQ/L See_Comment [Automated messa ge] The system which generated this result transmitted reference range: 3.5-5.4 MEQ/L. The reference range was not used to interpret this result as normal/abnormal. CHLORIDE (test code = 2075-0) 105 MEQ/L See_Comment [Automated messa ge] The system which generated this result transmitted reference range: 95-107 MEQ/L. The reference range was not used to interpret this result as normal/abnormal. CARBON DIOXIDE (test code = 1963-8) 25 MEQ/L See_Comment [Automated messa ge] The system which generated this result transmitted reference range: 19-31 MEQ/L. The reference range was not used to interpret this result as normal/abnormal. CALCIUM (test code = 08537-0) 9.6 MG/DL See_Comment [Automated messa ge] The system which generated this result transmitted reference range: 8.5-10.5 MG/DL. The reference range was not used to interpret this result as normal/abnormal. PROTEIN, TOTAL (test code = 2885-2) 7.2 G/DL See_Comment [Automated messa ge] The system which generated this result transmitted reference range: 6.1-8.3 G/DL. The reference range was not used to interpret this result as normal/abnormal. ALBUMIN (test code = 1751-7) 3.9 G/DL See_Comment [Automated messa ge] The system which generated this result transmitted reference range: 3.5-5.2 G/DL. The reference range was not used to interpret this result as normal/abnormal. CALC GLOBULIN (test code = 12397-3) 3.3 G/DL See_Comment [Automated messa ge] The system which generated this result transmitted reference range: 1.9-3.7 G/DL. The reference range was not used to interpret this result as normal/abnormal. CALC A/G RATIO (test code = 1759-0) 1.2 RATIO See_Comment [Automated messa ge] The system which generated this result transmitted reference range: 1.0-2.6 RATIO. The reference range was not used to interpret this result as normal/abnormal. BILIRUBIN, TOTAL (test code = 1975-2) 0.3 MG/DL See_Comment [Automated message] The system which generated this result transmitted reference range: <=1.2 MG/DL. The reference range was not used to interpret this result as normal/abnormal. ALKALINE PHOSPHATASE (test code = 6768-6) 82 U/L See_Comment [Automated message] The system which generated this result transmitted reference range: 40-125 U/L. The reference range was not used to interpret this result as normal/abnormal. AST (test code = 1920-8) 18 U/L See_Comment [Automated [employer]] The system which generated this result transmitted reference range: 9-50 U/L. The reference range was not used to interpret this result as normal/abnormal. ALT (test code = 1742-6) 8 U/L See_Comment [Automated [employer]] The system which generated this result transmitted reference range: 5-50 U/L. The reference range was not used to interpret this result as normal/abnormal.
[2023-08-19 16:36] LABS: Albumin 3.4 g/dL (3.4-5.0); Albumin/Globulin Ratio 0.9 (1.1-1.8); Anion Gap 10.7 mEq/L (5.0-15.0); Bilirubin Total 0.3 mg/dL (0.2-1.0); Globulin 3.6 g/dL (2.3-3.5); PT Prothrombin Time 11.5 SECONDS (9.5-12.5); PTT, Activated Partial Thromb 30.2 SECONDS (24.3-36.9); Potassium 3.7 mEq/L (3.5-5.1); Protime INR 1.05; Troponin High Sensitivity 5.9 pg/mL (<58.9)
[2023-08-19 16:39] LABS: Absolute Basophils 0.1 K/uL (0-0.5); Absolute Lymphocytes (CBC) 1.8 K/uL (0.7-4.9); Absolute Monocytes 0.8 K/uL (0.1-1.3); Absolute Neutrophil 6.5 K/uL (1.8-8.0); Basophils % 0.6 % (0-1.3); Eosinophils % 0.5 % (0-4.4); Hematocrit 32.9 % (39.6-49.0); Hemoglobin 11.2 g/dL (13.6-17.9); Lymphocytes % 19.2 % (15.3-44.8); MCH 30.2 pg (27.0-35.0); MCHC 33.9 g/dL (32.0-36.0); MCV 89.1 fL (80-100); MPV 9.9 fL (7.6-11.3); Monocytes % 8.9 % (3.3-12.3); Neutrophils % 70.8 % (41.7-73.7); Platelets 225 thou/uL (152-406); RBC Red Blood Cell Count 3.69 M/uL (4.33-5.43); Red Cell Distribution Width 14.6 % (12.1-15.2)
--- NOTE | 2023-08-19 17:37 | RAD REPORT ---
EXAM DESCRIPTION: CT - Abdomen Pelvis Wo Contrast - 08/19/2023 5:28 pm CLINICAL HISTORY: Abdominal pain. EPIGASTRIC PAIN COMPARISON: No comparisons TECHNIQUE: CT imaging of the abdomen and pelvis was performed without contrast. Solid organ, bowel a nd vascular assessment is limited due to lack of IV and oral contrast. All CT scans are performed using dose optimization technique as appropriate and may include automated exposure control or mA/KV adjustment according to patient size. FINDINGS: 13 mm nodule is present in the left lung base posteriorly. The lung bases are otherwise cl ear. There is significant fluid distention of the stomach and proximal duodenum.There is intrahepatic, ext rahepatic and pancreatic duct irregular dilatation. Multiple cysts left kidney. Right kidney nonvisua lized. No bowel obstruction, free air, free fluid or abscess. Moderate stool throughout the colon. Advanced degenerative levoscoliosis the lumbar spine. IMPRESSION: Significant biliary dilatation is seen including the pancreatic duct and intrahepatic bi liary tree. Recommend correlation with bilirubin levels. This could be caused by a mass in the pancre atic head region, however full assessment is not possible due to noncontrast nature of the study. MRI abdomen with contrast and MRCP would be suggested for non urgent further evaluation. 13 mm left lung base nodule, nonspecific. Neoplasia not excluded. Significant distention of the stomach and proximal duodenum. Upper endoscopy may be useful. A limited non-contrast examination was performed as detailed.
--- NOTE | 2023-08-19 17:54 | RAD REPORT ---
EXAM DESCRIPTION: RAD - Chest Single View - 08/19/2023 5:48 pm CLINICAL HISTORY: indigestion Chest pain. COMPARISON: No comparisons FINDINGS: Portable technique limits examination quality. The lungs are emphysematous but grossly clear. The heart is normal in size. No displaced fractures. IMPRESSION: COPD.
--- NOTE | 2023-08-19 18:01 | ER ---
Nurse's Notes [facility] Name: Thai Gardner Age: 73 yrs Sex: Male : 1950 Arrival Date: 08/19/2023 Time: 15:43 Bed 3 Private MD: Diagnosis: Hypotension, unspecified;Other specified diseases of biliary tract;Anemia, unspecified Presentation: 08/18 15:48 Chief complaint: Patient states: sent by PCP for low blood pressure and dehydration. ko1 Coronavirus screen: At this time, the client does not indicate any symptoms associated with coronavirus-19. Ebola Screen: No symptoms or risks identified at this time. Initial Sepsis Screen: Does the patient meet any 2 criteria? No. Patient's initial sepsis screen is negative. Does the patient have a suspected source of infection? No. Patient's initial sepsis screen is negative. Risk Assessment: Do you want to hurt yourself or someone else? Patient reports no desire to harm self or others. Onset of symptoms is unknown. 15:48 Method Of Arrival: Wheelchair ko1 15:48 Acuity: LAURE 2 ko1 Triage Assessment: 15:49 General: Appears ill, slender, Behavior is calm, cooperative, appropriate for age. ko1 Pain: Denies pain. 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 - Infectious Disease History:: Denies. - Social history:: Smoking status: Patient reports the use of cigarette tobacco products, smokes one pack cigarettes per day. Screenin:15 [facility] ED Fall Risk Assessment (Adult) History of falling in the last 3 months, mb9 including since admission No falls in past 3 months (0 pts) Confusion or Disorientation No (0 pts) Intoxicated or Sedated No (0 pts) Impaired Gait No (0 pts) Mobility Assist Device Used No (0 pt) Altered Elimination No (0 pt) Score/Fall Risk Level 0 - 2 = Low Risk Oriented to surroundings, Maintained a safe environment, Educated pt \T\ family on fall prevention, incl call for assistance when getting out of bed. Abuse screen: Denies threats or abuse. Nutritional screening: No deficits noted. Tuberculosis screening: No symptoms or risk factors identified. Assessment: 16:14 General: Appears in no apparent distress. Behavior is calm, cooperative. Pain: Denies mb9 pain. Neuro: Portillo Agitation-Sedation Scale (RASS): 0 - Alert and Calm Level of Consciousness is awake, alert, obeys commands, Oriented to person, place, time, situation, Appropriate for age Reports dizziness. Cardiovascular: Heart tones S1 S2 present Patient's skin is warm and dry. Rhythm is sinus tachycardia. Respiratory: Airway is patent Respiratory effort is even, unlabored, Respiratory pattern is regular, symmetrical, Breath sounds with wheezes bilaterally. GI: Abd is soft and non tender X 4 quads. GI: Abdomen is flat, non-distended, Bowel sounds present X 4 quads. Reports bloody stool, nausea, vomiting. : No signs and/or symptoms were reported regarding the genitourinary system. EENT: No signs and/or symptoms were reported regarding the EENT system. EENT: Oral mucosa is dry. Derm: Skin is pink, warm \T\ dry. Musculoskeletal: Range of motion: intact in all extremities. 17:54 Reassessment: No changes from previously documented assessment. Patient and/or family mb9 updated on plan of care and expected duration. Pain level reassessed. Patient is alert, oriented x 3, equal unlabored respirations, skin warm/dry/pink. 19:00 Reassessment: Patient and/or family updated on plan of care and expected duration. Pain ha1 level reassessed. Patient is alert, oriented x 3, equal unlabored respirations, skin warm/dry/pink. 20:00 Reassessment: Patient and/or family updated on plan of care and expected duration. Pain ha1 level reassessed. Patient is alert, oriented x 3, equal unlabored respirations, skin warm/dry/pink. 21:00 Reassessment: Patient appears in no apparent distress at this time. No changes from mb9 previously documented assessment. Patient and/or family updated on plan of care and expected duration. Pain level reassessed. Patient is alert, oriented x 3, equal unlabored respirations, skin warm/dry/pink. Vital Signs: 15:48 BP 72 / 46; Pulse 109; Resp 16; Temp 97; Pulse Ox 100% on R/A; ko1 16:13 BP 126 / 71; Pulse 94; Resp 18; Pulse Ox 94% on R/A; mb9 17:01 BP 112 / 95; Pulse 85; Resp 22; Pulse Ox 100% ; mb9 17:54 BP 137 / 99; Pulse 82; Resp 18; Pulse Ox 97% on R/A; mb9 18:45 BP 138 / 82; Pulse 72; Resp 18; Pulse Ox 100% on R/A; mb9 19:30 BP 134 / 68; Pulse 78; Resp 17 S; Pulse Ox 100% on R/A; ha1 20:00 BP 124 / 71; Pulse 74; Resp 18; Pulse Ox 97% ; mb9 21:50 BP 138 / 71; Pulse 81; Resp 17 S; Pulse Ox 97% on R/A; ha1 ED Course: 15:45 Patient arrived in ED. im 15:47 Chandler Reece DO is Attending Physician. ms3 15:49 Triage completed. ko1 15:49 Arm band placed on right wrist. Patient placed in an exam room, on a stretcher, on ko1 cardiac technologist, on pulse oximetry, Patient notified of wait time. 15:58 Initial lab(s) drawn, by hi, sent to lab. First set of blood cultures drawn by hi. mb9 16:05 Jagruti Jay, RN is Primary Nurse. mb9 16:05 Second set of blood cultures drawn by hi. mb9 16:06 Blood Culture Adult (2) Sent. mb9 16:06 Lactate w/ 2H reflex if indic. Sent. mb9 16:07 Inserted saline lock: 18 gauge in right antecubital area, using aseptic technique. mb9 Blood collected. 16:07 Blood Culture Adult (2) Sent. mb9 16:07 Lactate w/ 2H reflex if indic. Sent. mb9 16:13 Jagruti Jay, RN is Primary Nurse. mb9 16:14 Inserted. mb9 16:14 EKG done, by ED staff, reviewed by Chandler Reece DO. mb9 16:16 Placed in gown. Bed in low position. Call light in reach. Side rails up X 1. Provided mb9 Education on: press call light if needing anything. Client placed on continuous cardiac and pulse oximetry monitoring. NIBP monitoring applied. switchboard operator assistant on. Door closed. Noise minimized. Warm blanket given. 16:37 Notified ED physician of a critical lab result(s). lactate 2.2. mb9 17:[address] via stretcher. mb9 17:29 Abdomen In Process Unspecified. EDMS 17:50 XRAY Chest (1 view) In Process Unspecified. EDMS 18:00 Jimenez Hugo MD is Hospitalizing Provider. ms3 22:01 Patient admitted, IV remains in place. mb9 22:16 No provider procedures requiring assistance completed. km8 Administered Medications: 19:06 Drug: Ondansetron IVP 4 mg IVP once; over 2 minutes Route: IVP; Site: right antecubital;mb9 20:00 Follow up: Response: No adverse reaction; Marked relief of symptoms ha1 Medication: 16:16 VIS not applicable for this client. mb9 Outcome: 18:00 Decision to Hospitalize by Provider. ms3 22:22 Instructed on the need for admit, Demonstrated understanding of instructions, km8 22:55 Admitted to Med/surg accompanied by nurse, family with patient, via wheelchair, room ha1 224, with chart, 22:55 Condition: stable 22:56 Patient left the ED. ha1 Signatures: Dispatcher [employer] EDMS Chandler Reece DO DO ms3 Denise Perla, RN RN ha1 Gill Garza, RN RN Jagruti Lewis, RN RN mb9 Mandi Thomas Katie, RN RN km8 Corrections: (The following items were deleted from the chart) 16:14 16:07 Inserted saline lock: 20 gauge in right antecubital area, using aseptic mb9 technique. Blood collected. mb9 16:29 16:14 GI: Abdomen is flat, non-distended, Bowel sounds present X 4 quads. Reports mb9 bloody stool, mb9 17:02 17:01 BP 112 / 95; Pulse 85bpm; Resp 24bpm; Pulse Ox 100%; mb9 mb9
--- NOTE | 2023-08-19 18:01 | EDPHYS ---
Physician Documentation [facility] Name: Thai Gardner Age: 73 yrs Sex: Male : 1950 Arrival Date: 08/19/2023 Time: 15:43 Bed 3 Private MD: ED Physician Chandler Reece HPI: 08/18 16:03 This 73 yrs old Male presents to ER via Wheelchair with complaints of Low blood ms3 pressure, Dehydration, sent by Kevin. 16:03 73-year-old male with past medical history of hypertension, hyperlipidemia, coronary ms3 artery disease presents emergency department for indigestion/vomiting that began yesterday. Patient states yesterday he also had bloody stools. Patient endorses diaphoresis. Patient denies pain at this time. Patient denies any alleviating or inciting factors. 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 - Infectious Disease History:: Denies. - Social history:: Smoking status: Patient reports the use of cigarette tobacco products, smokes one pack cigarettes per day. ROS: 16:03 Constitutional: Negative for fever, and chills. Neck: Negative for injury, pain, and ms3 swelling, Cardiovascular: Negative for chest pain, and palpitations. Respiratory: Negative for shortness of breath, cough, wheezing, and pleuritic chest pain, 16:03 Skin: Negative for injury, rash, and discoloration, 16:03 Abdomen/GI: Positive for nausea and vomiting, Indigestion, Exam: 16:03 Constitutional: This is a well developed, well nourished patient who is awake, alert, ms3 and in no acute distress. Head/Face: Normocephalic, atraumatic. Chest/axilla: Normal chest wall appearance and motion. Nontender with no deformity. Cardiovascular: Regular rate and rhythm with a normal S1 and S2. No gallops, murmurs, or rubs. Normal PMI, no JVD. No pulse deficits. Respiratory: Lungs have equal breath sounds bilaterally, clear to auscultation and percussion. No rales, rhonchi or wheezes noted. No increased work of breathing, no retractions or nasal flaring. Abdomen/GI: Soft, non-tender, with normal bowel sounds. No distension or tympany. No guarding or rebound. No evidence of tenderness throughout. Skin: Warm, dry with normal turgor. Normal color with no rashes, no lesions, and no evidence of cellulitis. MS/ Extremity: Pulses equal, no cyanosis. Neurovascular intact. Full, normal range of motion. 17:21 ECG was reviewed by the Attending Physician. ms3 Vital Signs: 15:48 BP 72 / 46; Pulse 109; Resp 16; Temp 97; Pulse Ox 100% on R/A; ko1 16:13 BP 126 / 71; Pulse 94; Resp 18; Pulse Ox 94% on R/A; mb9 17:01 BP 112 / 95; Pulse 85; Resp 22; Pulse Ox 100% ; mb9 17:54 BP 137 / 99; Pulse 82; Resp 18; Pulse Ox 97% on R/A; mb9 18:45 BP 138 / 82; Pulse 72; Resp 18; Pulse Ox 100% on R/A; mb9 19:30 BP 134 / 68; Pulse 78; Resp 17 S; Pulse Ox 100% on R/A; ha1 20:00 BP 124 / 71; Pulse 74; Resp 18; Pulse Ox 97% ; mb9 21:50 BP 138 / 71; Pulse 81; Resp 17 S; Pulse Ox 97% on R/A; ha1 MDM: 16:03 Differential Diagnosis Hypovolemia versus SC versus GI bleed. ms3 16:21 Patient medically screened. ms3 17:21 ED course: No source of infection identified at this time.. ms3 17:25 Independent interpretation of the following test(s) in the Emergency Department X-Ray: ms3 My interpretation is CXR images reviewed by me do not reveal pneumonia. 18:01 Data reviewed: vital signs, nurses notes, lab test result(s), EKG, radiologic studies, ms3 and as a result, I will admit patient. Consideration of Admission/Observation Patient was admitted/placed on observation. Management of patient was discussed with the following: Hospitalist: Dr Hugo. Historians other than the Patient: Daughter/Son: . Counseling: I had a detailed discussion with the patient and/or guardian regarding the historical points, exam findings, and any diagnostic results supporting the discharge/admit diagnosis, lab results, radiology results, the need for further work-up and treatment in the hospital. ED course: Discussed labs and imaging with patient and his daughter. Discussed necessity for admission and patient and his daughter understand and agree with plan. All questions were answered. Case discussed with Dr. Hugo and he would like IV fluids and MRCP ordered. 08/18 16:02 Order name: CBC with Diff; Complete Time: 17:00 ms3 08/18 16:02 Order name: CMP; Complete Time: 17:00 ms3 08/18 16:02 Order name: Lipase; Complete Time: 17:00 ms3 08/18 16:02 Order name: Troponin HS; Complete Time: 17:00 ms3 08/18 16:03 Order name: Blood Culture Adult (2) ms3 08/18 16:03 Order name: Lactate w/ 2H reflex if indic.; Complete Time: 17:00 ms3 08/18 16:03 Order name: Protime (+inr); Complete Time: 17:00 ms3 08/18 16:03 Order name: Ptt, Activated; Complete Time: 17:00 ms3 08/18 18:39 Order name: Hemoglobin A1c EDUT 08/18 18:39 Order name: Lipid Profile EDUT 08/18 18:39 Order name: Thyroid Stimulating Hormone EDUT 08/18 18:39 Order name: CBC with Automated Diff EDMS 08/18 18:39 Order name: CBC with Automated Diff EDMS 08/18 18:39 Order name: CBC with Automated Diff EDMS 08/18 18:39 Order name: CBC with Automated Diff EDMS 08/18 18:39 Order name: Comprehensive Metabolic Panel EDMS 08/18 18:39 Order name: Comprehensive Metabolic Panel EDMS 08/18 18:39 Order name: Comprehensive Metabolic Panel EDMS 08/18 18:39 Order name: Comprehensive Metabolic Panel EDMS 08/18 19:06 Order name: Lactate Sepsis 2 HR Follow-up; Complete Time: 19:41 EDMS 08/18 16:02 Order name: XRAY Chest (1 view); Complete Time: 17:58 ms3 08/18 17:26 Order name: Abdomen ; Complete Time: 17:43 EDMS 08/18 18:14 Order name: Cholangiogram EDMS 08/18 18:39 Order name: CONS Physician Consult EDMS 08/18 16:02 Order name: IV Saline Lock; Complete Time: 16:06 ms3 08/18 16:02 Order name: Labs collected and sent; Complete Time: 16:06 ms3 08/18 16:02 Order name: Cardiac monitoring; Complete Time: 16:07 ms3 08/18 16:02 Order name: EKG - Nurse/Tech; Complete Time: 16:07 ms3 08/18 16:02 Order name: O2 Per Protocol; Complete Time: 16:07 ms3 08/18 16:02 Order name: O2 Sat Monitoring; Complete Time: 16:07 ms3 08/18 16:03 Order name: Accucheck; Complete Time: 16:05 ms3 08/18 16:03 Order name: IV Saline Lock - Large Bore; Complete Time: 16:06 ms3 08/18 16:03 Order name: Vital Signs; Complete Time: 16:06 ms3 EC:21 Rate is 102 beats/min. Rhythm is regular. QRS Wiggins is Normal. [place] interval is normal. ms3 QRS interval is normal. Clinical impression: Sinus tachycardia. Interpreted by me. Reviewed by me. Administered Medications: 19:06 Drug: Ondansetron IVP 4 mg IVP once; over 2 minutes Route: IVP; Site: right antecubital;mb9 20:00 Follow up: Response: No adverse reaction; Marked relief of symptoms ha1 Disposition Summary: 08/19/23 18:00 Hospitalization Ordered Notes: Hospitalization Status: Inpatient Admission ms3 Provider: Jimenez Hugo ms3 Location: Telemetry/MedSurg (Inpatient) ms3 Condition: Stable ms3 Problem: new ms3 Symptoms: are unchanged ms3 Bed/Room Type: Standard ms3 Room Assignment: 224(08/19/23 22:11) jb4 Diagnosis - Hypotension, unspecified ms3 - Other specified diseases of biliary tract ms3 - Anemia, unspecified ms3 Forms: - Medication Reconciliation Form ms3 - SBAR form ms3 - Leadership Thank You Letter ms3 Signatures: Dispatcher [employer] Virgil Dale, RN RN jb4 Chandler Reece DO DO ms3 Gill Garza RN RN ko1 Jagruti Jay RN RN mb9 Denise Perla RN ha1 Corrections: (The following items were deleted from the chart) 16:03 16:03 Chest Single View+RAD.RAD.BRZ ordered. EDMS EDMS 17:26 16:02 Abdomen Pelvis W Con+CT.RAD.BRZ ordered. EDMS EDMS 22:11 18:00 ms3 jb4
[2023-08-19] MEDS ORDERED: MORPHINE 4 MG/ML SYR IV PRN (18:09)
--- NOTE | 2023-08-19 18:43 | P.HP ---
Certification for Inpatient Patient admitted to: Inpatient With expected LOS: >2 Midnights Patient will require the following post-hospital care: None Practitioner: I am a practitioner with admitting privileges, knowledge of patient current condition, hospital course, and medical plan of care. Services: Services provided to patient in accordance with Admission requirements found in Title 42 Section 412.3 of the Code of Federal Regulations Patient History Date of Service: 08/19/23 Primary Care Provider: Raza Brown Reason for admission: bilary dilitation History of Present Illness: Patient is a pleasant 73 year old. He has a history of htn, pvd, hyperlipidemia and nicotine dependence. The patient has been having abdominal pain, nausea and vomiting for the last few days. Worse with spicy or fatty foods. Went to his PCP and was sent to the ER. He was found to have acute renal failure and biliary dilitation on CT. Will be admitted for MRCP. Need to start him on fluids as well. Allergies codeine Allergy (Severe, Verified 05/11/20 12:57) Nausea/Vomiting Review of Systems 10-point ROS is otherwise unremarkable Gastrointestinal: Nausea, Vomiting, Abdominal Pain Physical Examination - Physical Exam General: Alert, Mild distress HEENT: Atraumatic, PERRLA, Mucous membr. moist/pink, EOMI, Sclerae nonicteric Neck: Supple, 2+ carotid pulse no bruit, No LAD, Without JVD or thyroid abnormality Respiratory: Clear to auscultation bilaterally, Normal air movement Cardiovascular: Regular rate/rhythm, Normal S1 S2 Gastrointestinal: Normal bowel sounds, No tenderness Musculoskeletal: No tenderness Integumentary: No rashes Neurological: Normal gait, Normal speech, Normal strength at 5/5 x4 extr, Normal tone, Normal affect Lymphatics: No axilla or inguinal lymphadenopathy - Studies Laboratory Data (last 24 hrs) 08/19/23 08/19/23 08/19/23 16:05 16:05 16:05 WBC 9.20 Hgb 11.2 L Hct 32.9 L Plt Count 225 PT 11.5 INR 1.05 APTT 30.2 Sodium 137 Potassium 3.7 BUN 26 H Creatinine 1.88 H Glucose 145 H Total Bilirubin 0.3 AST 18 ALT 17 Alkaline Phosphatase 71 Lipase 77 H Assessment and Plan - Problems (Diagnosis) (1) Abnormal computerized tomography of biliary tract Current Visit: Yes Status: Acute Plan: will admit it for clear liquid diet. Order an MRCP. Will consult Dr. Gonsalo figueroa (2) Acute renal failure Current Visit: Yes Status: Acute Plan: hold losartan. Start the patient on d5 1/2 n saline Qualifiers: Acute renal failure type: unspecified Qualified Code(s): N17.9 - Acute kidney failure, unspecified (3) Essential (primary) hypertension Current Visit: Yes Status: Acute Plan: will hold the losartan. PRN hydralazine (4) Peripheral vascular disease Current Visit: Yes Status: Chronic Plan: continue plavix and statin (5) Hyperlipidemia Current Visit: Yes Status: Chronic Plan: check lipid profile and continue atorvastatin 10mg (6) Nicotine dependence Current Visit: Yes Status: Chronic Plan: spent 10min discuss smoking cessation. [email or web address].gov. Setting a quit date, weaning and nicotine replacement were all discussed. The patient seemed at least open to the discussion Qualifiers: Nicotine product type: cigarettes Substance use status: uncomplicated Qualified Code(s): F17.210 - Nicotine dependence, cigarettes, uncomplicated Discharge Plan: Home Plan to discharge in: Greater than 2 days - Advance Directives Does patient have a Living Will: No Does patient have a Durable POA for Healthcare: No - Code Status/Comfort Care Code Status Assessed: Yes Code Status: Full Code Critical Care: No Time Spent Managing Pts Care (In Minutes): 70
[2023-08-19] MEDS ORDERED: ONDANSETRON 4 MG/2 ML VIAL ONE (19:04)
[2023-08-19] MEDS: D5 0.45 NS 1,000 ML IV SCH (23:14)
[2023-08-19] MEDS: ENOXAPARIN 40 MG/0.4 ML SQ SCH (23:14)
[2023-08-19] MEDS: ATORVASTATIN 10 MG TAB PO SCH (23:14)
[2023-08-20 01:22] VITALS: O2SAT 98; BMI 19.5
[2023-08-20] MEDS: ONDANSETRON 4 MG/2 ML VIAL IV PRN (03:15)
[2023-08-20 07:13] LABS: Absolute Neutrophil 8.1 K/uL (1.8-8.0); Basophils % 0.2 % (0-1.3); Eosinophils % 0.2 % (0-4.4); Hemoglobin 9.3 g/dL (13.6-17.9); Lymphocytes % 17.6 % (15.3-44.8); MCH 29.5 pg (27.0-35.0); MCHC 33.2 g/dL (32.0-36.0); MCV 88.9 fL (80-100); MPV 9.9 fL (7.6-11.3); Monocytes % 8.9 % (3.3-12.3); Neutrophils % 73.1 % (41.7-73.7); Platelets 180 thou/uL (152-406); RBC Red Blood Cell Count 3.15 M/uL (4.33-5.43); Red Cell Distribution Width 14.2 % (12.1-15.2)
[2023-08-20 07:27] LABS: Albumin 2.9 g/dL (3.4-5.0); Bilirubin Total 0.2 mg/dL (0.2-1.0); Protein, Total 5.9 g/dL (6.4-8.2); Thyroid Stimulating Hormone 0.507 uIU/mL (0.358-3.740)
[2023-08-20] MEDS: PANTOPRAZOLE 40MG TABLET PO SCH (07:30)
[2023-08-20] MEDS: CLOPIDOGREL 75 MG TABLET PO SCH (08:32)
--- NOTE | 2023-08-20 09:52 | P.PN ---
Subjective Date of Service: 08/20/23 Primary Care Provider: Raza Brown Chief Complaint: bilary dilitation Subjective: New changes (was able to tolerate oral foods) Review of Systems 10-point ROS is otherwise unremarkable Physical Examination - Vital Signs Temperature: 98.4 F Blood Pressure: 125/54 Pulse: 85 Respirations: 16 Pulse Ox (%): 97 - Physical Exam General: Alert, In no apparent distress HEENT: Atraumatic, PERRLA, EOMI Neck: Supple, JVD not distended Respiratory: Clear to auscultation bilaterally, Normal air movement Cardiovascular: Regular rate/rhythm, Normal S1 S2 Gastrointestinal: Normal bowel sounds, No tenderness Musculoskeletal: No tenderness Integumentary: No rashes Neurological: Normal speech, Normal tone, Normal affect Lymphatics: No axilla or inguinal lymphadenopathy - Studies Laboratory Data (last 24 hrs) 08/19/23 08/19/23 08/19/23 16:05 16:05 16:05 WBC 9.20 Hgb 11.2 L Hct 32.9 L Plt Count 225 PT 11.5 INR 1.05 APTT 30.2 Sodium 137 Potassium 3.7 BUN 26 H Creatinine 1.88 H Glucose 145 H Total Bilirubin 0.3 AST 18 ALT 17 Alkaline Phosphatase 71 Lipase 77 H Assessment And Plan - Current Problems (Diagnosis) (1) Abnormal computerized tomography of biliary tract Current Visit: Yes Status: Acute Plan: will admit it for clear liquid diet. Order an MRCP. Will consult Dr. Gonsalo Brandon 08/19 MRCP pending this afternoon (2) Acute renal failure Current Visit: Yes Status: Acute Plan: hold losartan. Start the patient on d5 1/2 n saline 08/19 some improvement Will continue hydration Qualifiers: Acute renal failure type: unspecified Qualified Code(s): N17.9 - Acute kidney failure, unspecified (3) Essential (primary) hypertension Current Visit: Yes Status: Acute Plan: will hold the losartan. PRN hydralazine (4) Peripheral vascular disease Current Visit: Yes Status: Chronic Plan: continue plavix and statin (5) Hyperlipidemia Current Visit: Yes Status: Chronic Plan: check lipid profile and continue atorvastatin 10mg (6) Nicotine dependence Current Visit: Yes Status: Chronic Plan: spent 10min discuss smoking cessation. smokefree.gov. Setting a quit date, weaning and nicotine replacement were all discussed. The patient seemed at least open to the discussion Qualifiers: Nicotine product type: cigarettes Substance use status: uncomplicated Qualified Code(s): F17.210 - Nicotine dependence, cigarettes, uncomplicated Discharge Plan: Home Plan to discharge in: 24 Hours Critical Care: No Time Spent Managing PTS Care (In Minutes): 20
--- NOTE | 2023-08-20 14:27 | RAD REPORT ---
EXAM DESCRIPTION: MRICholangiogram08/20/2023 2:03 pm CLINICAL HISTORY: Abdominal pain and nausea COMPARISON: July 19, 2023 CT TECHNIQUE: Magnetic resonance cholangiogram was performed.3D MIP reconstruction performed. Additiona l axial and coronal magnetic resonance imaging of abdomen obtained. FINDINGS: A filling defect within the gallbladder is not seen Moderate dilatation of common bile duct and intrahepatic biliary tree. There is an abrupt cut off dis jorge luis common bile duct. Moderate dilatation of pancreatic duct. Gastric distention IMPRESSION: Moderate dilatation of the pancreatic and biliary ducts may be secondary to a pancreatic head mass. ERCP is recommended
[2023-08-21 07:47] LABS: Absolute Eosinophils 0.2 K/uL (0-0.5); Absolute Lymphocytes (CBC) 1.5 K/uL (0.7-4.9); Absolute Monocytes 0.9 K/uL (0.1-1.3); Absolute Neutrophil 6.4 K/uL (1.8-8.0); Basophils % 0.4 % (0-1.3); Eosinophils % 2.1 % (0-4.4); Hematocrit 27.4 % (39.6-49.0); Hemoglobin 9.2 g/dL (13.6-17.9); Lymphocytes % 16.6 % (15.3-44.8); MCH 29.9 pg (27.0-35.0); MCHC 33.6 g/dL (32.0-36.0); MCV 89.1 fL (80-100); MPV 9.8 fL (7.6-11.3); Monocytes % 10.3 % (3.3-12.3); Neutrophils % 70.6 % (41.7-73.7); Platelets 185 thou/uL (152-406); RBC Red Blood Cell Count 3.08 M/uL (4.33-5.43); Red Cell Distribution Width 14.4 % (12.1-15.2)
[2023-08-21 07:57] LABS: Albumin 2.8 g/dL (3.4-5.0); Albumin/Globulin Ratio 0.9 (1.1-1.8); Anion Gap 6.2 mEq/L (5.0-15.0); Bilirubin Total 0.2 mg/dL (0.2-1.0); Globulin 3.1 g/dL (2.3-3.5); Potassium 4.2 mEq/L (3.5-5.1); Protein, Total 5.9 g/dL (6.4-8.2)
--- NOTE | 2023-08-21 10:12 | P.DS ---
Admission Date: 08/19/23 Discharge Date: 08/21/23 Primary Care Provider: Raza Brown Reason for Admission: bilary dilitation - Problems (1) Abnormal computerized tomography of biliary tract Current Visit: Yes Status: Acute (2) Acute renal failure Current Visit: Yes Status: Acute Qualifiers: Acute renal failure type: unspecified Qualified Code(s): N17.9 - Acute kidney failure, unspecified (3) Essential (primary) hypertension Current Visit: Yes Status: Acute (4) Peripheral vascular disease Current Visit: Yes Status: Chronic (5) Hyperlipidemia Current Visit: Yes Status: Chronic (6) Nicotine dependence Current Visit: Yes Status: Chronic Qualifiers: Nicotine product type: cigarettes Substance use status: uncomplicated Qualified Code(s): F17.210 - Nicotine dependence, cigarettes, uncomplicated Brief History of Present Illness: Patient is a pleasant 73 year old. He has a history of htn, pvd, hyperlipidemia and nicotine dependence. The patient has been having abdominal pain, nausea and vomiting for the last few days. Worse with spicy or fatty foods. Went to his PCP and was sent to the ER. He was found to have acute renal failure and biliary dilitation on CT. Will be admitted for MRCP. Need to start him on fluids as well. Hospital Course: Patient was admitted with nausea and vomiting. Had acute renal failure. The patient had a pancreatic swelling. MRCP showed a possible mass. He is tolerating orals, moving his bowels. Creatine has improved. Will discharge him home. Mrs Brown can refer him to Dr. Black for an ERCP Thank you for allowing me to take part in his care Vital Signs/Physical Exam: Temp Pulse Resp BP Pulse Ox 97.8 F 82 20 104/60 99 08/21/23 04:00 08/21/23 04:00 08/21/23 04:00 08/21/23 04:00 08/21/23 04:00 General: Alert, In no apparent distress HEENT: Atraumatic, PERRLA, EOMI Neck: Supple, JVD not distended Respiratory: Clear to auscultation bilaterally, Normal air movement Cardiovascular: Regular rate/rhythm, Normal S1 S2 Gastrointestinal: Normal bowel sounds, No tenderness Musculoskeletal: No tenderness Integumentary: No rashes Neurological: Normal speech, Normal tone, Normal affect Lymphatics: No axilla or inguinal lymphadenopathy Laboratory Data at Discharge: WBC 9.00 thou/uL (4.3-10.9) 08/21/23 07:23 Hgb 9.2 g/dL (13.6-17.9) L 08/21/23 07:23 Hct 27.4 % (39.6-49.0) L 08/21/23 07:23 Plt Count 185 thou/uL (152-406) 08/21/23 07:23 PT 11.5 SECONDS (9.5-12.5) 08/19/23 16:05 INR 1.05 08/19/23 16:05 APTT 30.2 SECONDS (24.3-36.9) 08/19/23 16:05 Sodium 137 mEq/L (136-145) 08/21/23 07:23 Potassium 4.2 mEq/L (3.5-5.1) 08/21/23 07:23 BUN 22 mg/dL (7-18) H 08/21/23 07:23 Creatinine 1.42 mg/dL (0.70-1.30) H 08/21/23 07:23 Glucose 129 mg/dL (74-106) H 08/21/23 07:23 Total Bilirubin 0.2 mg/dL (0.2-1.0) 08/21/23 07:23 AST 17 U/L (15-37) 08/21/23 07:23 ALT 16 U/L (16-61) 08/21/23 07:23 Alkaline Phosphatase 61 U/L (45-117) 08/21/23 07:23 Triglycerides 69 mg/dL (<150) 08/20/23 06:47 Cholesterol 65 mg/dL (<200) 08/20/23 06:47 HDL Cholesterol 26 mg/dL (40-60) L 08/20/23 06:47 Cholesterol/HDL Ratio 2.50 08/20/23 06:47 Lipase 77 U/L (13-75) H 08/19/23 16:05 Home Medications: Aspirin 81 mg PO DAILY 08/20/23 Atorvastatin Calcium [Lipitor] 10 mg PO BEDTIME 08/20/23 Clopidogrel Bisulfate [Plavix] 75 mg PO DAILY 08/20/23 Ferrous Gluconate [Iron] 236 mg PO DAILY 08/20/23 Losartan Potassium [Cozaar] 25 mg PO BID 08/20/23 Sildenafil Citrate 100 mg PO DAILYPRN PRN 08/20/23 Diet: Dale Activity: Ad rosibel Followup: Kiki Brown FNP [Primary Care Provider] - Time spent managing pt's care (in minutes): 30
[2023-08-21 11:12] VITALS: BP 147/72; TEMP 98.7
--- NOTE | 2023-08-22 16:56 | EKG ---
Test Date: 2023-08-19 Test Time: 16:03:20 Plant Breeder Scientist: MALVIN MEASUREMENT RESULTS: Intervals: Rate: 102 TX: 144 QRSD: 84 QT: 368 QTc: 479 [place]: P: 82 TX: 144 QRS: 52 T: 80 INTERPRETIVE STATEMENTS: Sinus tachycardia Otherwise normal ECG No previous ECG available for comparison Electronically Signed On 08-22-23 16:45:36 CDT by Murray Reno
== END 2023-08-21 12:19 | disposition home or self-care (01) | DRG 445 ==
LOC: ER 15:43 → ERHOLD 21:56 → 2ND 22:22
PROVIDERS: ADMIT Internal Medicine; ATTEND Internal Medicine
DX: K83.8 Other specified diseases of biliary tract (principal); E87.21 Acute metabolic acidosis; N17.9 Acute kidney failure, unspecified; I10 Essential (primary) hypertension; E78.5 Hyperlipidemia, unspecified; I95.9 Hypotension, unspecified; I73.9 Peripheral vascular disease, unspecified; D64.9 Anemia, unspecified; K86.9 Disease of pancreas, unspecified; I25.10 Atherosclerotic heart disease of native coronary artery without angina pectoris; F17.210 Nicotine dependence, cigarettes, uncomplicated; Z90.5 Acquired absence of kidney; Z88.5 Allergy status to narcotic agent; Z79.82 Long term (current) use of aspirin; Z79.02 Long term (current) use of antithrombotics/antiplatelets; Z79.899 Other long term (current) drug therapy
CPT/HCPCS: 36415; 71045; 74176; 74181; 80053; 80061; 83036; 83605; 83690; 84443; 84484; 85025; 85610; 85730; 87040; 93005; 96374; 99285; J1650; J2405; J7799

== ENCOUNTER 2024-04-16 06:55 | Day surgery (SDC) | payer OTHER ==
[2024-04-15 13:05] LABS: Absolute Basophils 0.1 K/uL (0-0.5); Absolute Eosinophils 0.2 K/uL (0-0.5); Absolute Lymphocytes (CBC) 1.9 K/uL (0.7-4.9); Absolute Monocytes 1.3 K/uL (0.1-1.3); Absolute Neutrophil 8.1 K/uL (1.8-8.0); Basophils % 0.5 % (0-1.3); Hematocrit 31.2 % (39.6-49.0); Hemoglobin 10.4 g/dL (13.6-17.9); Lymphocytes % 16.7 % (15.3-44.8); MCH 29.5 pg (27.0-35.0); MCHC 33.1 g/dL (32.0-36.0); MPV 9.4 fL (7.6-11.3); Monocytes % 11.1 % (3.3-12.3); Neutrophils % 69.7 % (41.7-73.7); Platelets 228 thou/uL (152-406); RBC Red Blood Cell Count 3.51 M/uL (4.33-5.43); Red Cell Distribution Width 16.1 % (12.1-15.2)
[2024-04-15 13:19] LABS: PT Prothrombin Time 10.1 SECONDS (9.4-12.5); PTT, Activated Partial Thromb 34.4 SECONDS (24.3-36.9); Protime INR 0.9
[2024-04-15 13:22] LABS: Anion Gap 4.5 mEq/L (5.0-15.0); Potassium 3.5 mEq/L (3.5-5.1)
[2024-04-16 08:01] VITALS: O2SAT 100
[2024-04-16] MEDS ORDERED: propofoL 200 MG/20 ML VIAL IV ONE (08:13)
[2024-04-16] MEDS ORDERED: MIDAZOLAM HCL 2 MG/2 ML INJ ONE (08:13)
[2024-04-16] MEDS ORDERED: FENTANYL CITR 100 MCG/2 ML ONE (08:13)
[2024-04-16] MEDS ORDERED: LIDOCAINE 1% MPF 5 ML VIAL ONE (08:13)
[2024-04-16] MEDS ORDERED: NS 0.9% VIAL 20 ML ONE (08:30)
[2024-04-16] MEDS: Ringers Lactate 1,000 ML IV ONE (08:48)
[2024-04-16] MEDS: CEFAZOLIN SODIUM 2 GM/VIAL ONE (08:55)
[2024-04-16] MEDS ORDERED: EPHEDRINE SULF 50 MG/ML VIAL ONE (09:10)
[2024-04-16] MEDS: HEPARIN 5000 UNIT/ML 1 ML VIAL ONE (09:14)
[2024-04-16] MEDS: LIDOCAINE 1% 20 ML MDV ONE (09:16)
[2024-04-16] MEDS ORDERED: Mastisol Adhesive Liq ONE (09:29)
--- NOTE | 2024-04-16 09:46 | P.OP ---
Date of Service: 04/16/24 Preop diagnosis: Pancreatic cancer Postop diagnosis: Same Procedure performed: Placement of right internal jugular vascular access device, utilization of Doppler and fluoroscopy Surgeon: Curly Arroyo MD [employer] Supervisor: None Estimated blood loss: Minimal Specimen: None Findings: Normal anatomy Anesthesia: MAC Complications: None Drains: None Fluids and blood products: Nonapplicable Disposition: Recovery room Operative note: Patient brought to the OR and placed in supine position. General anesthesia began. Patient prepped and draped in usual sterile fashion. Lidocaine 1% infiltrated locally. Doppler device used to identify the right internal jugular vein. 18-gauge needle used to access the right internal jugular vein. Guidewire passed and position confirmed with fluoroscopy. 3 cm counterincision made on the right anterior chest. Pocket created. Bleeding controlled with cautery. Tunneling device used to tunnel the catheter between the 2 wounds. Seldinger technique used and tip of the catheter placed in the SVC under fluoroscopy. Catheter cut to appropriate size and attached to the Port-A-Cath device. Port-A-Cath device attached to subcutaneous tissue with 3-0 Vicryl. Fashion subcutaneous tissue with 3-0 Vicryl. Port flushed with heparin and packed with heparin with good blood flow. 3-0 chromic used to approximate subcutaneous tissue and close skin. Sterile dressing applied. Patient awakened and taken to recovery room in good general condition. Chest x-ray has been ordered. CC: Dr. Juan's office
--- NOTE | 2024-04-16 10:35 | RAD REPORT ---
EXAMINATION: ONE VIEW CHEST XR CLINICAL INDICATION: Status post Port-A-Cath placement TECHNIQUE: Frontal chest projection is submitted. Examination is limited by patient positioning and t echnique. COMPARISON: 08/19/2023 FINDINGS: Right-sided port catheter tip is in the SVC. No postprocedure pneumothorax. The lungs are mildly emph ysematous but clear. The heart is normal in size. No displaced fractures identified.
--- NOTE | 2024-04-16 10:54 | RAD REPORT ---
EXAM: Fluoroscopy use, Fluoroscopy <1 Hour HISTORY: PORT A CATH PLACEMENT COMPARISON: None FINDINGS: Multiple images were sent to PACS, during a fluoroscopically guided procedure. No radiologi st was involved in protocoling or performance of the study, and no radiologist was present for the duration of the procedure. No interpretation of the saved images will be provided. Total fluoroscopy time: 0.5 minutes. IMPRESSION: Documentation of fluoroscopy use as above.
[2024-04-16] MEDS ORDERED: TRAMADOL 37.5mg/APAP 325mg PER TAB ONE (12:04)
[2024-04-16] MEDS: TRAMADOL 37.5mg/APAP 325mg PER TAB PO PRN (12:07)
[2024-04-16 12:56] VITALS: BP 162/84; TEMP 97.2
== END 2024-04-16 12:10 | disposition home or self-care (01) ==
LOC: OR 06:55
PROVIDERS: ATTEND Surgery
PROC: 0JH60WZ Insertion of Totally Implantable Vascular Access Device into Chest Subcutaneous Tissue and Fascia, Open Approach (ICD-10-PCS; principal; 2024-04-16 08:48)
DX: C25.9 Malignant neoplasm of pancreas, unspecified (principal)
CPT/HCPCS: 85025; 80048; 36415; 85610; 85730; 71045; 36561; J1644 ×2; A4216; J2704; J2003 ×2; J2250; J3010; J7120; C1788 ×2; 76000